=== PATIENT | male | born 1945 | race Caucasian/White ===

== ENCOUNTER 2020-07-12 09:41 | Emergency (ER) | payer OTHER, MEDICARE, SELFPAY ==
--- NOTE | ~2020-07-12 | XR_ITS ---
EXAMINATION: XR CHEST CLINICAL INFORMATION: Nausea, vomiting, diarrhea, cough and abdominal pain. COMPARISON: None TECHNIQUE: 2 views of the chest were obtained. FINDINGS: The lungs are hyperexpanded but clear of acute process. Heart size and pulmonary vascularity is normal. There is mild spondylosis dorsal spine. No lytic process. XR/XR chest 2V IMPRESSION: Hypoexpanded lungs but clear.
--- NOTE | ~2020-07-12 | CT_ITS ---
EXAMINATION: CT ABDOMEN AND PELVIS WITH CONTRAST CLINICAL INFORMATION: Abdominal pain COMPARISON: None TECHNIQUE: Multidetector volumetric images were obtained from the superior aspect of the liver through the pubic symphysis following administration 85 mL of Omnipaque 350 intravenous contrast. Sagittal and coronal reformatted images were obtained on the technologist's workstation. Oral contrast: No This CT examination was performed using dose optimization techniques as appropriate, variously including the following: *Automated exposure control *Adjustment of mA and/or kV according to patient size (this includes techniques or standardized protocols for targeted exams where dose is matched to indication/reason for exam; i.e. extremities or head) *Use of iterative reconstruction technique DLP: 6:15 mGy-cm FINDINGS: LUNG BASES: The visualized lung bases are unremarkable. LIVER, GALLBLADDER, AND BILIARY TREE: The liver is normal in size, shape, and attenuation. No focal hepatic lesion or biliary ductal dilatation is present. Small gallstones noted incidentally. No acute inflammatory changes. PANCREAS: Unremarkable. SPLEEN: Unremarkable. ADRENAL GLANDS: Unremarkable. KIDNEYS AND URETERS: The kidneys are normal in size, shape, and attenuation. No hydronephrosis, hydroureter, or calculi seen. No perinephric stranding. Incidental right renal cortical cyst. BLADDER: Unremarkable. GASTROINTESTINAL TRACT: Relatively pronounced diverticulosis throughout the colon especially sigmoid colon. No acute inflammatory changes. Within the left lower quadrant please see dietz images, there is a fat lobule adjacent to the sigmoid colon which appears inflamed consistent with epiploic appendicitis. ABDOMINAL WALL: No significant hernia is appreciated. LYMPH NODES: Normal. VASCULAR: Unremarkable. PELVIC VISCERA: Marked prostatic enlargement. OSSEOUS STRUCTURES: Bulky spurring within the right supra-acetabular location noted. CT/CT abdomen pelvis w con IMPRESSION: Findings consistent with epiploic appendicitis left lower quadrant. Incidental gallstones. Diverticulosis without acute inflammatory changes.
[2020-07-12 09:48] VITALS: BP 159/75; PULSE 74; RESP 18; TEMP 37.2; O2SAT 95; BMI 27.1
--- NOTE | 2020-07-12 09:57 | ECG_ITS ---
Test Reason : WEAKNESS Blood Pressure : / mmHG Vent. Rate : 067 BPM Atrial Rate : 067 BPM P-R Int : 154 ms QRS Dur : 090 ms QT Int : 432 ms P-R-T Axes : 015 015 015 degrees QTc Int : 456 ms Normal sinus rhythm Normal ECG No previous ECGs available Referred By: Marilyn Zavala Electronically Signed By:Erik Palma
[2020-07-12] MEDS: 0.9 % Sodium Chloride 1,000 ML 999 ML IVCONT (10:06)
--- NOTE | 2020-07-12 10:28 | ED_ITS ---
HPI - Nausea/Vomiting/Diarrhea General Chief complaint: Nausea/Vomiting/Diarrhea Stated complaint: nausea, diarrhea, chills Time Seen by Provider: 07/12/20 09:51 Source: patient and EMS Mode of arrival: EMS Limitations: no limitations History of Present Illness HPI Narrative: 74-year-old male with a past medical history of diabetes, hypertension, hyperlipidemia and BPH presenting to the ED with complaints of nausea/vomiting/diarrhea with abdominal pain that started this morning. Reports he had a chills after he vomited. Reports he has also had a cough over the past few days with white-colored sputum. Patient reports he ate fish that his cook last night she ate the same meal and is not having any similar symptoms. He reports his abdominal pain has resolved. He was given Zofran and given fluids by EMS and already is starting to feel better. Denies recent travel or sick contacts. Denies any fevers, dizziness, lightheadedness, changes in vision, hematemesis, sore throat, chest pain, shortness of breath, dyspnea on exertion, orthopnea, palpitations, back pain, black or bloody stools, yellow mu cousy stools, dysuria, hematuria or any other symptom complaints or concerns at this time. Denies recent antibiotic usage. Denies recent hospitalization. Patient denies being on any blood thinners. Patient denies history of abdominal surgery, alcohol abuse or trauma. MD elicited complaint: nausea, vomiting, diarrhea and abdominal pain Onset (ago): minute(s) (Prior to arrival) Description of vomiting: bilious Description of diarrhea: watery and loose Associated nausea: Yes Associated abdominal pain: Yes Location of pain: diffuse Pain consistency: now resolved Severity: mild Quality: cramping Exacerbating factors: vomiting Relieving factors: none Associated symptoms: cough, fever/chills (Chills no fever) and nausea/vomiting Treatment prior to arrival: fluids and other (Patient given Zofran) Related Data Previous Rx's Medication Instructions Recorded acetaminophen [Tylenol Extra 1,000 mg PO QID PRN #14 tab 07/12/20 Strength] amoxicillin-pot clavulanate 1 tab PO BID 10 Days #20 tab 07/12/20 [Augmentin] ondansetron HCl [Zofran] 4 mg PO Q8H PRN #14 tab 07/12/20 oxycodone 5 mg PO BID PRN #10 tab 07/12/20 Allergies Allergy/AdvReac Type Severity Reaction Status Date / Time No Known Allergies Allergy Unverified 12/13/19 16:08 Review of Systems Review of Systems: Constitutional : + Chills, No Fever, No Night Sweats, No Fatigue, No Malaise Cardiovascular : No Chest Pain, No SOB Respiratory : + Cough, + Sputum, No Wheezing, No Dyspnea Gastrointestinal : + Nausea, + Vomiting, + Diarrhea, + abdominal Pain, No Hematochezia, No Melena Genitourinary : No irregular bleeding, No Dysuria, No Urinary Frequency, No Hematuria,No Urinary Incontinence, No Urgency, No Flank Pain Musculoskeletal : No joint pain, No Myalgias, No Joint Swelling Skin : No Skin Lesions, No rash Neuro : No Weakness, No Numbness, No Paresthesias, No Loss of Consciousness, No Dizziness, No Headache Heme/Lymph: No Lymphadenopathy Endocrine : No Temperature Intolerance Yes all other systems are reviewed and are negative Gastrointestinal: Gastrointestinal: Reports nausea PMFSH Past Medical History Attestation statement: The following information was validated with the patient. Social History Social History Advance Directives: No Advance Directives Information Provided: Yes Physical Exam Vital Signs: Vital Signs: Last Vital Signs Temp 99.0 F 07/12/20 11:15 Pulse 66 07/12/20 15:21 Resp 14 07/12/20 15:21 BP 170/80 H 07/12/20 15:21 Pulse Ox 96 07/12/20 15:21 Body Mass Index 27.1 vital signs have been reviewed as normal and appeared to be correct. Blood pressure hypertensive at 159/75. Heart rate normal. Respiration rate normal. Temperature normal. Oxygen saturation normal. Appearance: Alert. Oriented X3. No acute distress. Head: Normal external exam. Normocephalic. Eyes: PERRLA. EOMI. Conjunctiva and sclera normal. Eyelids normal. ENT: Pharynx normal. Uvula midline. Moist mucous membranes. No trismus noted. No drooling noted. No muffled voice noted. Neck: Normal inspection. Neck supple. FROM. No adenopathy. No meningeal signs. CVS: Normal heart rate and rhythm. Heart sound normal. No murmurs noted. Pulses normal throughout. Respiratory: No respiratory distress. Painless inspiration. Breath sounds normal. No wheezes/rales/rhonchi noted. Chest nontender. No accessory muscle usage noted or decreased air movement noted. Abdomen: Soft and nontender. Nondistended. No guarding. No rigidity. Bowel sounds normal in all 4 quadrants. No distention noted. No organomegaly noted. No visible injury noted. No rebound tenderness. Negative Rovsing sign. Negative obturator's sign. Negative psoas sign. Negative Dent sign. Back: No CVA tenderness. Full range of motion noted. Skin: Skin warm and dry. Normal skin color. Normal skin turgor. No rashes/lesions/lacerations noted. Extremities: No lower extremity edema noted. No calf tenderness noted. Extremities exhibit normal range of motion. Extremities nontender. Neuro: Oriented X 3. No motor deficit. No sensory deficit. Reflexes normal. Course Course Course Narrative: 1:30pm - BUN 18 - UA with 500 glucose otherwise no evidence of UTI. - COVID swab negative. - patient was requesting a Lyme test due to he is always in the [facility] - chest x-ray revealed hypoexpanded lungs but clear - EKG revealed normal sinus rhythm intricate of 67 with a normal [place] interval normal QRS duration normal QT/QTC interval. No acute ischemic changes are noted. Reevaluation(s) Reevaluation #1: - CT scan of abdomen and pelvis revealed Findings consistent with epiploic appendicitis left lower quadrant. - therefore I discussed this case with Dr. Woods and he reviewed the films and he reported that it is not appendicitis it is actually epiploic apendagitis and that his appendix was completely within normal limits and he recommended me to discharge the patient with antibiotics Augmentin and symptomatic treatment instructions to return if any new or worsening symptoms to follow up with primary care provider. Therefore I updated the patient and he understands will DC home with antibiotics and symptomatic treatment structures return if any new or worsening symptoms. Patient and understand agree with this plan. Time: 16:29 MDM - Nausea/Vomiting/Diarrhea MDM Narrative Medical decision making narrative: 10:40am - 74-year-old male presenting to the ED with complaints of nausea/vomiting/diarrhea with diffuse abdominal pain that started this morning. Also reports productive cough with white-colored sputum over the past few days. Denies recent travel or sick contacts. Not on any blood thinners. - patient arrived by EMS he received 4 mg of Zofran and 200 mL of fluids and reports he is feeling better. He reports his abdominal pain is completely resolved at this time. - on exam patient is alert and oriented x3. Not in any acute distress. Vital signs reviewed and patient mildly hypertensive at 159/75 otherwise all other vitals are within normal limits. No focal neuro deficits are noted. Lungs clear to auscultation. CV RRR. Abdomen is soft and nontender. No CVA tenderness bilaterally noted. No calf tenderness or lower extremity edema noted. - Plan: Labs, chest x-ray, EKG, CT scan of abdomen and pelvis with IV contrast. Provide a L of IV fluids and re-evaluate. Medical Records Attestation: I reviewed the patient's medical records. Lab Data Attestation: I reviewed the patient's lab results. Result diagrams: 07/12/20 10:40 07/12/20 10:40 Labs: Lab Results 07/12/20 07/12/20 07/12/20 Range/Units 10:40 10:40 10:40 WBC 9.8 (4.8-10.8) X10*3/uL RBC 4.80 (4.60-5.80) X10*6/uL Hgb 13.8 L (14.0-18.0) g/dl Hct 42.1 (42-52) % MCV 87.7 (80-98) fL MCH 28.8 (27.0-33.0) pg MCHC 32.8 (31.0-36.0) g/dl RDW 13.5 (11.0-16.0) % Plt Count 208 (160-400) X10*3/uL MPV 10.6 (9.4-12.4) fL Immature Gran % (Auto) 0.4 (0.0-0.4) % Neut % (Auto) 82.5 H (45-73) % Lymph % (Auto) 6.8 L (20-40) % [place] % (Auto) 9.0 (2-11) % Eos % (Auto) 1.0 (0-4) % Baso % (Auto) 0.3 (0-2) % Lymph # (Auto) 0.7 L (1.2-4.9) X10*3/uL [place] # (Auto) 0.9 (0.1-1.2) X10*3/uL Eos # (Auto) 0.1 (0.0-0.4) X10*3/uL Baso # (Auto) 0.0 (0.0-0.2) X10*3/uL Abs Immat Gran (auto) 0.04 H (0.00-0.03) X10*3/uL Absolute Neuts (auto) 8.1 (2.0-8.3) X10*3/uL Absolute Nucleated RBC 0.000 (0.0-0.012) X10*3/uL Nucleated RBC % (auto) 0.0 (0.0-0.2) /100WBC Smear Tech's Comments VERIFIED Hold Purple Top PT 10.7 L (10.8-13.0) SEC INR 0.9 (0.9-1.1) APTT 22.0 L (24.1-38.0) SEC Sodium (135-145) mmol/L Potassium (3.3-5.1) mmol/L Chloride (96-108) mmol/L Carbon Dioxide (22-29) mmol/L Anion Gap (12-20) BUN (9-16) mg/dL Creatinine (0.5-1.4) mg/dL Estim Creat Clear Calc Estimated GFR Random Glucose (60-115) mg/dL Calcium (8.4-10.2) mg/dL Magnesium 1.8 (1.6-2.6) mg/dL Ferritin (20-250) ng/mL Total Bilirubin (0.0-1.0) mg/dL AST (5-37) U/L ALT (0-40) U/L Alkaline Phosphatase (39-117) U/L Lactate Dehydrogenase (118-273) U/L B-Natriuretic Peptide (<100) pg/mL Total Protein (6.5-8.0) g/dL Albumin (3.5-5.0) g/dL Procalcitonin ng/mL Urine Color Urine Appearance Urine pH (5.0-8.0) Ur Specific [place] (1.005-1.025) Urine Protein (NEG-TRACE) MG/DL Urine Glucose (UA) (NEG) MG/DL Urine Ketones (NEG) MG/DL Urine Blood (NEG) Urine Nitrite (NEG) Ur Leukocyte Esterase (NEG) COVID-19 (REUBEN) (Negative) COVID-19 Clin Com 07/12/20 07/12/20 07/12/20 Range/Units 10:40 10:40 10:40 WBC (4.8-10.8) X10*3/uL RBC (4.60-5.80) X10*6/uL Hgb (14.0-18.0) g/dl Hct (42-52) % MCV (80-98) fL MCH (27.0-33.0) pg MCHC (31.0-36.0) g/dl RDW (11.0-16.0) % Plt Count (160-400) X10*3/uL MPV (9.4-12.4) fL Immature Gran % (Auto) (0.0-0.4) % Neut % (Auto) (45-73) % Lymph % (Auto) (20-40) % [place] % (Auto) (2-11) % Eos % (Auto) (0-4) % Baso % (Auto) (0-2) % Lymph # (Auto) (1.2-4.9) X10*3/uL [place] # (Auto) (0.1-1.2) X10*3/uL Eos # (Auto) (0.0-0.4) X10*3/uL Baso # (Auto) (0.0-0.2) X10*3/uL Abs Immat Gran (auto) (0.00-0.03) X10*3/uL Absolute Neuts (auto) (2.0-8.3) X10*3/uL Absolute Nucleated RBC (0.0-0.012) X10*3/uL Nucleated RBC % (auto) (0.0-0.2) /100WBC Smear Tech's Comments Hold Purple Top PT (10.8-13.0) SEC INR (0.9-1.1) APTT (24.1-38.0) SEC Sodium 141 (135-145) mmol/L Potassium 3.8 (3.3-5.1) mmol/L Chloride 108 (96-108) mmol/L Carbon Dioxide 22 (22-29) mmol/L Anion Gap 15 (12-20) BUN 18 H (9-16) mg/dL Creatinine 0.80 (0.5-1.4) mg/dL Estim Creat Clear Calc 84.9 Estimated GFR > 60 Random Glucose 224 H (60-115) mg/dL Calcium 9.1 (8.4-10.2) mg/dL Magnesium (1.6-2.6) mg/dL Ferritin 116 (20-250) ng/mL Total Bilirubin 0.9 (0.0-1.0) mg/dL AST 18 (5-37) U/L ALT 29 (0-40) U/L Alkaline Phosphatase 71 (39-117) U/L Lactate Dehydrogenase 161 (118-273) U/L B-Natriuretic Peptide 89 (<100) pg/mL Total Protein 6.2 L (6.5-8.0) g/dL Albumin 3.9 (3.5-5.0) g/dL Procalcitonin 0.15 ng/mL Urine Color Urine Appearance Urine pH (5.0-8.0) Ur Specific [place] (1.005-1.025) Urine Protein (NEG-TRACE) MG/DL Urine Glucose (UA) (NEG) MG/DL Urine Ketones (NEG) MG/DL Urine Blood (NEG) Urine Nitrite (NEG) Ur Leukocyte Esterase (NEG) COVID-19 (REUBEN) (Negative) COVID-19 Clin Com 07/12/20 07/12/20 07/12/20 Range/Units 10:40 10:43 12:03 WBC (4.8-10.8) X10*3/uL RBC (4.60-5.80) X10*6/uL Hgb (14.0-18.0) g/dl Hct (42-52) % MCV (80-98) fL MCH (27.0-33.0) pg MCHC (31.0-36.0) g/dl RDW (11.0-16.0) % Plt Count (160-400) X10*3/uL MPV (9.4-12.4) fL Immature Gran % (Auto) (0.0-0.4) % Neut % (Auto) (45-73) % Lymph % (Auto) (20-40) % [place] % (Auto) (2-11) % Eos % (Auto) (0-4) % Baso % (Auto) (0-2) % Lymph # (Auto) (1.2-4.9) X10*3/uL [place] # (Auto) (0.1-1.2) X10*3/uL Eos # (Auto) (0.0-0.4) X10*3/uL Baso # (Auto) (0.0-0.2) X10*3/uL Abs Immat Gran (auto) (0.00-0.03) X10*3/uL Absolute Neuts (auto) (2.0-8.3) X10*3/uL Absolute Nucleated RBC (0.0-0.012) X10*3/uL Nucleated RBC % (auto) (0.0-0.2) /100WBC Smear Tech's Comments Hold Purple Top SEE NOTE PT (10.8-13.0) SEC INR (0.9-1.1) APTT (24.1-38.0) SEC Sodium (135-145) mmol/L Potassium (3.3-5.1) mmol/L Chloride (96-108) mmol/L Carbon Dioxide (22-29) mmol/L Anion Gap (12-20) BUN (9-16) mg/dL Creatinine (0.5-1.4) mg/dL Estim Creat Clear Calc Estimated GFR Random Glucose (60-115) mg/dL Calcium (8.4-10.2) mg/dL Magnesium (1.6-2.6) mg/dL Ferritin (20-250) ng/mL Total Bilirubin (0.0-1.0) mg/dL AST (5-37) U/L ALT (0-40) U/L Alkaline Phosphatase (39-117) U/L Lactate Dehydrogenase (118-273) U/L B-Natriuretic Peptide (<100) pg/mL Total Protein (6.5-8.0) g/dL Albumin (3.5-5.0) g/dL Procalcitonin ng/mL Urine Color YELLOW Urine Appearance CLEAR Urine pH 5.0 (5.0-8.0) Ur Specific [place] >= 1.030 H (1.005-1.025) Urine Protein NEG (NEG-TRACE) MG/DL Urine Glucose (UA) 500 H (NEG) MG/DL Urine Ketones NEG (NEG) MG/DL Urine Blood NEG (NEG) Urine Nitrite NEG (NEG) Ur Leukocyte Esterase NEG (NEG) COVID-19 (REUBEN) Negative (Negative) COVID-19 Clin Com See Note Imaging Data Chest x-ray: Attestation: I personally reviewed and interpreted this imaging study as follows: Radiologist's impression: FINDINGS: The lungs are hyperexpanded but clear of acute process. Heart size and pulmonary vascularity is normal. There is mild spondylosis dorsal spine. No lytic process. XR/XR chest 2V IMPRESSION: Hypoexpanded lungs but clear. CT scan of abdomen and pelvis with IV contrast: Attestation: I personally reviewed and interpreted this imaging study as follows: Radiologist's impression: FINDINGS: LUNG BASES: The visualized lung bases are unremarkable. LIVER, GALLBLADDER, AND BILIARY TREE: The liver is normal in size, shape, and attenuation. No focal hepatic lesion or biliary ductal dilatation is present. Small gallstones noted incidentally. No acute inflammatory changes. PANCREAS: Unremarkable. SPLEEN: Unremarkable. ADRENAL GLANDS: Unremarkable. KIDNEYS AND URETERS: The kidneys are normal in size, shape, and attenuation. No hydronephrosis, hydroureter, or calculi seen. No perinephric stranding. Incidental right renal cortical cyst. BLADDER: Unremarkable. GASTROINTESTINAL TRACT: Relatively pronounced diverticulosis throughout the colon especially sigmoid colon. No acute inflammatory changes. Within the left lower quadrant please see dietz images, there is a fat lobule adjacent to the sigmoid colon which appears inflamed consistent with epiploic appendicitis. ABDOMINAL WALL: No significant hernia is appreciated. LYMPH NODES: Normal. VASCULAR: Unremarkable. PELVIC VISCERA: Marked prostatic enlargement. OSSEOUS STRUCTURES: Bulky spurring within the right supra-acetabular location noted. CT/CT abdomen pelvis w con IMPRESSION: Findings consistent with epiploic appendicitis left lower quadrant. Incidental gallstones. Diverticulosis without acute inflammatory changes. ECG Data Attestation: I personally reviewed and interpreted this ECG as follows: ECG interpretation date: 07/12/20 ECG interpretation time: 11:06 Interpretation: Normal sinus rhythm with a ventricular rate of 67 with a normal [place] interval normal QRS duration normal QT/QTC interval. No acute ischemic changes are noted. No prior EKG in our system to Compare to at this time. Critical Care Time Critical Care Time Critical Care Time: Yes Total Critical Care Time: 60 Attestation: I personally attest to this time spent taking care of the patient Discharge Plan Discharge Clinical Impression: Gallstones, Epiploic appendagitis, Diverticulosis Patient Disposition: Home, Self-Care Instructions: Acute Nausea and Vomiting (ED), Abdominal Pain (ED) Additional Instructions: You have a pending LYME TEST if it is positive you will be contacted so we can treat you. Return if any new or worsening symptoms. Follow up with her primary care provider. Prescriptions: New ondansetron HCl [Zofran] 4 mg tablet 4 mg PO Q8H PRN (Reason: nausea and vomiting) Qty: 14 RF: 0 acetaminophen [Tylenol Extra Strength] 500 mg tablet 1,000 mg PO QID PRN (Reason: fever or pain) Qty: 14 RF: 0 amoxicillin-pot clavulanate [Augmentin] 875-125 mg tablet 1 tab PO BID 10 Days Qty: 20 RF: 0 oxycodone 5 mg tablet 5 mg PO BID PRN (Reason: pain) Qty: 10 RF: 0 Referrals: Brian Chatterjee [Primary Care Provider] - 2 days Print Language: Turkish
[2020-07-12 10:52] LABS: Basophils Percent Auto 0.3 % (0-2); Eosinophils Absolute Auto 0.1 X10*3/uL (0.0-0.4); Hematocrit 42.1 % (42-52); Hemoglobin 13.8 g/dl (14.0-18.0); Imm Gran Abs Auto 0.04 X10*3/uL (0.00-0.03); Imm Gran Pct Auto 0.4 % (0.0-0.4); Lymphocytes Absolute Auto 0.7 X10*3/uL (1.2-4.9); Lymphocytes Percent Auto 6.8 % (20-40); MANUAL DIFF FLAG SCAN; Mean Corpuscular HGB Conc 32.8 g/dl (31.0-36.0); Mean Corpuscular Hemoglobin 28.8 pg (27.0-33.0); Mean Corpuscular Volume 87.7 fL (80-98); Mean Platelet Volume 10.6 fL (9.4-12.4); Monocytes Absolute Auto 0.9 X10*3/uL (0.1-1.2); Neutrophils Absolute Auto 8.1 X10*3/uL (2.0-8.3); Neutrophils Percent Auto 82.5 % (45-73); Platelet Count 208 X10*3/uL (160-400); Red Cell Distribution Width 13.5 % (11.0-16.0); SCAN SMEAR FLAG 1; White Blood Count 9.8 X10*3/uL (4.8-10.8)
[2020-07-12 10:59] LABS: INTERNATIONAL NORM RATIO 0.9 (0.9-1.1); Prothrombin Time 10.7 SEC (10.8-13.0)
[2020-07-12 11:07] LABS: COVID-19 Test Negative (Negative); IDNOW Serial# 9DD0AD1C
[2020-07-12 11:10] LABS: Magnesium 1.8 mg/dL (1.6-2.6)
[2020-07-12 11:15] VITALS: BP 150/78; PULSE 68; RESP 17; TEMP 37.2
[2020-07-12 11:17] LABS: SLIDE REVIEW VERIFIED
[2020-07-12 11:18] LABS: Alanine Aminotransferase 29 U/L (0-40); Albumin Level 3.9 g/dL (3.5-5.0); Alkaline Phosphatase 71 U/L (39-117); Anion Gap 15 (12-20); Aspartate Amino Transferase 18 U/L (5-37); Bilirubin Total 0.9 mg/dL (0.0-1.0); Blood Urea Nitrogen 18 mg/dL (9-16); Calcium 9.1 mg/dL (8.4-10.2); Carbon Dioxide 22 mmol/L (22-29); Chloride 108 mmol/L (96-108); Creatinine Clr Calc Pharmacy 84.9; Estimated Glomerular Filt Rate > 60; Glucose Random 224 mg/dL (60-115); Lactate Dehydrogenase 161 U/L (118-273); Potassium 3.8 mmol/L (3.3-5.1); Sodium 141 mmol/L (135-145); Total Protein 6.2 g/dL (6.5-8.0)
[2020-07-12 11:19] LABS: B Type Natriuretic Peptide 89 pg/mL (<100)
[2020-07-12 11:34] LABS: Procalcitonin 0.15 ng/mL
[2020-07-12 11:40] LABS: Ferritin 116 ng/mL (20-250)
[2020-07-12 12:17] LABS: Glucose Urine UA 500 MG/DL (NEG); Leukocyte Esterase Urine NEG (NEG); Nitrite Urine NEG (NEG); Specific Gravity - Urine >= 1.030 (1.005-1.025); Urine Blood NEG (NEG); Urine Ketones NEG (NEG); Urine Protein NEG (NEG-TRACE)
[2020-07-12 12:22] LABS: Appearance Urine CLEAR; Color Urine YELLOW
[2020-07-12] MEDS: iohexoL 350 MG/ML 100 ML INFUS..BTL IV (14:53)
[2020-07-12 15:21] VITALS: BP 170/80; PULSE 66; RESP 14; O2SAT 96
[2020-07-13 05:46] LABS: Lyme Abs Screen <0.90 index
== END 2020-07-12 16:55 | disposition home or self-care (01) ==
PROVIDERS: Physician Assistant Medical; Emergency Provider Emergency Medicine; PCP Internal Medicine
DX: K80.80 Other cholelithiasis without obstruction (principal); K63.89 Other specified diseases of intestine; K57.30 Diverticulosis of large intestine without perforation or abscess without bleeding; Z20.822 Contact with and (suspected) exposure to COVID-19; R11.2 Nausea with vomiting, unspecified; E11.9 Type 2 diabetes mellitus without complications; I10 Essential (primary) hypertension; E78.5 Hyperlipidemia, unspecified
CPT/HCPCS: 36415; 71046; 74177; 80053; 81003; 82728; 83615; 83735; 83880; 84145; 85025; 85610; 85730; 86617; 86618; 87635; 93005; 96360; 99284; 99291; Q9967

== ENCOUNTER 2020-07-18 05:52 | Emergency (ER) | payer OTHER, MEDICARE, SELFPAY ==
--- NOTE | ~2020-07-18 | US_ITS ---
EXAMINATION: US ABDOMEN LIMITED CLINICAL INFORMATION: Right upper quadrant/epigastric pain. COMPARISON: None TECHNIQUE: Real-time imaging of the right upper quadrant abdominal viscera. FINDINGS: PANCREAS: Pancreas is largely obscured by bowel gas. LIVER: There is increased echogenicity of the hepatic parenchyma with decreased sonographic through-transmission and obscuration of the portal vessels, consistent with steatosis. Focal fatty sparing is seen near the gallbladder fossa. The liver is normal in size. The liver contour is normal. No focal hepatic lesion. There is no intrahepatic biliary duct dilatation seen. GALLBLADDER: Echogenic bile and mobile gallstones are present within the gallbladder lumen. Along the superior gallbladder wall, there is a cluster of echogenic, nonshadowing, nonmobile confluent material with a mural attachment, measuring 1 cm in thickness. No significant internal blood flow is present within the material on color Doppler. Additional adherent, rounded polypoid foci are present in the gallbladder wall Gallbladder wall measures 3 mm in thickness, normal. No pericholecystic fluid. No sonographic Dent's sign was documented. COMMON BILE DUCT: Normal in caliber measuring 0.6 cm in diameter. RIGHT KIDNEY: No hydronephrosis or renal calculi. A 2 x 1.6 x 1.7 cm cyst is present in the interpolar region with a thin internal septation. No appreciable soft tissue component or internal blood flow on color Doppler. The kidney measures 11.5 cm in maximum dimension. Cortical thickness is normal. FREE FLUID: None. US/US abdomen limited IMPRESSION: 1. Cholelithiasis without evidence of acute cholecystitis. Of note, there is echogenic nonmobile material adherent to the gallbladder wall measuring 1 cm in thickness. This may correspond to adherent sludge, though a polypoid focus cannot be excluded. Additional adherent foci measuring up to 9 mm in diameter may correspond to separate polyps. Follow-up ultrasound in one year to verify stability. Alternatively, consider MRI abdomen with and without contrast for more definitive assessment. 2. Hepatic steatosis 3. A 2 cm minimally complex right renal cyst, likely Bosniak 2. No follow-up is necessary.
[2020-07-18 06:07] VITALS: BP 162/97; PULSE 80; O2SAT 95
[2020-07-18 06:12] VITALS: BP 183/92; PULSE 75; RESP 18; TEMP 36.9; O2SAT 95; BMI 27.2
--- NOTE | 2020-07-18 06:41 | ED.ABDPAIN ---
HPI - Abdominal Pain General Chief Complaint: Abdominal Pain Stated Complaint: n/v with abdominal pain Time Seen by Provider: 07/18/20 06:30 Source: patient, EMS and old records reviewed Mode of arrival: EMS Limitations: no limitations Related Data Previous Rx's Medication Instructions Recorded acetaminophen [Tylenol Extra 1,000 mg PO QID PRN #14 tab 07/12/20 Strength] amoxicillin-pot clavulanate 1 tab PO BID 10 Days #20 tab 07/12/20 [Augmentin] ondansetron HCl [Zofran] 4 mg PO Q8H PRN #14 tab 07/12/20 oxycodone 5 mg PO BID PRN #10 tab 07/12/20 Allergies Allergy/AdvReac Type Severity Reaction Status Date / Time No Known Allergies Allergy Unverified 12/13/19 16:08 Physical Exam Vital Signs: Vital Signs: Last Vital Signs Temp 98.4 F 07/18/20 06:12 Pulse 75 07/18/20 06:12 Resp 18 07/18/20 06:12 BP 183/92 H 07/18/20 06:12 Pulse Ox 95 07/18/20 06:12 Body Mass Index 27.2 Discharge Plan Discharge Prescriptions: No Action ondansetron HCl [Zofran] 4 mg tablet 4 mg PO Q8H PRN (Reason: nausea and vomiting) Qty: 14 RF: 0 acetaminophen [Tylenol Extra Strength] 500 mg tablet 1,000 mg PO QID PRN (Reason: fever or pain) Qty: 14 RF: 0 amoxicillin-pot clavulanate [Augmentin] 875-125 mg tablet 1 tab PO BID 10 Days Qty: 20 RF: 0 oxycodone 5 mg tablet 5 mg PO BID PRN (Reason: pain) Qty: 10 RF: 0 PMFSH Social History Social History Alcohol intake: never Smoking Status: Light tobacco smoker Use of substances other than those prescribed or required for medical reasons: No Advance Directives: No
--- NOTE | 2020-07-18 06:54 | ED.ABDPAIN ---
HPI - Abdominal Pain General Chief Complaint: Abdominal Pain Stated Complaint: n/v with abdominal pain Time Seen by Provider: 07/18/20 06:30 Source: patient Mode of arrival: EMS History of Present Illness HPI narrative: 74-year-old male with history of hypertension diabetes who presents via EMS with acute onset of recurrent epigastric diaphragmatic distribution of abdominal pain with multiple episodes of nausea and vomiting but denies any fevers or chills. Patient states that he was evaluated on Tuesday for similar symptoms but at that time noted that he had diarrhea. At that time he states he was diagnosed with ?appendicitis?. And he was discharged home with oral antibiotics. Related Data Previous Rx's Medication Instructions Recorded acetaminophen [Tylenol Extra 1,000 mg PO QID PRN #14 tab 07/12/20 Strength] amoxicillin-pot clavulanate 1 tab PO BID 10 Days #20 tab 07/12/20 [Augmentin] ondansetron HCl [Zofran] 4 mg PO Q8H PRN #14 tab 07/12/20 oxycodone 5 mg PO BID PRN #10 tab 07/12/20 Allergies Allergy/AdvReac Type Severity Reaction Status Date / Time No Known Allergies Allergy Unverified 12/13/19 16:08 Review of Systems Review of Systems Pertinent positives and negatives as stated in HPI 10 point review systems otherwise negative. Physical Exam Vital Signs: Vital Signs: Last Vital Signs Temp 98.4 F 07/18/20 06:12 Pulse 75 07/18/20 06:12 Resp 18 07/18/20 06:12 BP 183/92 H 07/18/20 06:12 Pulse Ox 95 07/18/20 06:12 Body Mass Index 27.2 VITAL SIGNS: Reviewed. GENERAL: Well developed, well nourished, in no acute distress. HEAD: Normocephalic/atraumatic EYES: PERRLA, EOMI NOSE: Nares patent bilateral OROPHARYNX: no oral lesions noted, posterior pharynx clear NECK: Supple, no adenopathy LUNGS: Normal breath sounds. No adventitious sounds or accessory muscle use. SpO2<95> CARDIOVASCULAR: Regular rate and rhythm without noted murmurs ABDOMEN: Soft, epigastric tenderness without rebound no noted tenderness on palpation at either lower quadrant, non-distended with bowel sounds. NEUROLOGIC: Alert and oriented x 4. Course Course Course Narrative: 74-year-old male with history and clinical presentation suggestive possible cholecystitis and less likely acute exacerbation appendagitis. All review initial lab results suggestive of possible cholecystitis and ultrasound is pending. Signed out to Dr Broussard. MDM - Abdominal Pain Lab Data Result diagrams: 07/18/20 06:52 07/18/20 06:52 Labs: Lab Results 07/18/20 07/18/20 Range/Units 06:52 06:52 WBC 7.7 (4.8-10.8) X10*3/uL RBC 4.62 (4.60-5.80) X10*6/uL Hgb 13.3 L (14.0-18.0) g/dl Hct 40.2 L (42-52) % MCV 87.0 (80-98) fL MCH 28.8 (27.0-33.0) pg MCHC 33.1 (31.0-36.0) g/dl RDW 13.5 (11.0-16.0) % Plt Count 224 (160-400) X10*3/uL MPV 9.9 (9.4-12.4) fL Immature Gran % (Auto) 0.4 (0.0-0.4) % Neut % (Auto) 86.7 H (45-73) % Lymph % (Auto) 8.2 L (20-40) % [place] % (Auto) 3.9 (2-11) % Eos % (Auto) 0.4 (0-4) % Baso % (Auto) 0.4 (0-2) % Lymph # (Auto) 0.6 L (1.2-4.9) X10*3/uL [place] # (Auto) 0.3 (0.1-1.2) X10*3/uL Eos # (Auto) 0.0 (0.0-0.4) X10*3/uL Baso # (Auto) 0.0 (0.0-0.2) X10*3/uL Abs Immat Gran (auto) 0.03 (0.00-0.03) X10*3/uL Absolute Neuts (auto) 6.7 (2.0-8.3) X10*3/uL Absolute Nucleated RBC 0.000 (0.0-0.012) X10*3/uL Nucleated RBC % (auto) 0.0 (0.0-0.2) /100WBC Smear Tech's Comments VERIFIED Sodium 140 (135-145) mmol/L Potassium 3.9 (3.3-5.1) mmol/L Chloride 107 (96-108) mmol/L Carbon Dioxide 22 (22-29) mmol/L Anion Gap 15 (12-20) BUN 14 (9-16) mg/dL Creatinine 0.76 (0.5-1.4) mg/dL Estim Creat Clear Calc 89.3 Estimated GFR > 60 Random Glucose 253 H (60-115) mg/dL Calcium 9.0 (8.4-10.2) mg/dL Total Bilirubin 1.1 H (0.0-1.0) mg/dL AST 26 D (5-37) U/L ALT 42 H (0-40) U/L Alkaline Phosphatase 70 (39-117) U/L Total Protein 6.4 L (6.5-8.0) g/dL Albumin 4.0 (3.5-5.0) g/dL Lipase 56 (8-78) U/L Discharge Plan Discharge Prescriptions: No Action ondansetron HCl [Zofran] 4 mg tablet 4 mg PO Q8H PRN (Reason: nausea and vomiting) Qty: 14 RF: 0 acetaminophen [Tylenol Extra Strength] 500 mg tablet 1,000 mg PO QID PRN (Reason: fever or pain) Qty: 14 RF: 0 amoxicillin-pot clavulanate [Augmentin] 875-125 mg tablet 1 tab PO BID 10 Days Qty: 20 RF: 0 oxycodone 5 mg tablet 5 mg PO BID PRN (Reason: pain) Qty: 10 RF: 0 PMFSH Past Medical History Source: nursing notes reviewed Social History Social History Alcohol intake: never Smoking Status: Light tobacco smoker Use of substances other than those prescribed or required for medical reasons: No Advance Directives: No
[2020-07-18 07:00] LABS: Basophils Percent Auto 0.4 % (0-2); Eosinophils Percent Auto 0.4 % (0-4); Hematocrit 40.2 % (42-52); Hemoglobin 13.3 g/dl (14.0-18.0); Imm Gran Abs Auto 0.03 X10*3/uL (0.00-0.03); Imm Gran Pct Auto 0.4 % (0.0-0.4); Lymphocytes Absolute Auto 0.6 X10*3/uL (1.2-4.9); Lymphocytes Percent Auto 8.2 % (20-40); MANUAL DIFF FLAG SCAN; Mean Corpuscular HGB Conc 33.1 g/dl (31.0-36.0); Mean Corpuscular Hemoglobin 28.8 pg (27.0-33.0); Mean Platelet Volume 9.9 fL (9.4-12.4); Monocytes Absolute Auto 0.3 X10*3/uL (0.1-1.2); Monocytes Percent Auto 3.9 % (2-11); Neutrophils Absolute Auto 6.7 X10*3/uL (2.0-8.3); Neutrophils Percent Auto 86.7 % (45-73); Platelet Count 224 X10*3/uL (160-400); Red Blood Count 4.62 X10*6/uL (4.60-5.80); Red Cell Distribution Width 13.5 % (11.0-16.0); SCAN SMEAR FLAG 1; White Blood Count 7.7 X10*3/uL (4.8-10.8)
[2020-07-18 07:21] LABS: SLIDE REVIEW VERIFIED
[2020-07-18 07:23] LABS: Alanine Aminotransferase 42 U/L (0-40); Alkaline Phosphatase 70 U/L (39-117); Anion Gap 15 (12-20); Aspartate Amino Transferase 26 U/L (5-37); Bilirubin Total 1.1 mg/dL (0.0-1.0); Blood Urea Nitrogen 14 mg/dL (9-16); Carbon Dioxide 22 mmol/L (22-29); Chloride 107 mmol/L (96-108); Creatinine Clr Calc Pharmacy 89.3; Estimated Glomerular Filt Rate > 60; Glucose Random 253 mg/dL (60-115); Lipase 56 U/L (8-78); Potassium 3.9 mmol/L (3.3-5.1); Sodium 140 mmol/L (135-145); Total Protein 6.4 g/dL (6.5-8.0)
--- NOTE | 2020-07-18 07:37 | ECG_ITS ---
Test Reason : ABDOMINAL PAIN Blood Pressure : / mmHG Vent. Rate : 074 BPM Atrial Rate : 074 BPM P-R Int : 164 ms QRS Dur : 092 ms QT Int : 410 ms P-R-T Axes : 041 013 035 degrees QTc Int : 455 ms Normal sinus rhythm Normal ECG When compared with ECG of 12-JUL-2020 11:06, No significant change was found Referred By: Danni Casarez Electronically Signed By:Erik Palma
[2020-07-18 08:38] LABS: Glucose Urine UA 500 MG/DL (NEG); Leukocyte Esterase Urine NEG (NEG); Nitrite Urine NEG (NEG); PH 5.5 (5.0-8.0); Urine Blood TRACE (NEG); Urine Ketones 5 MG/DL (NEG); Urine Protein NEG (NEG-TRACE)
[2020-07-18 08:39] LABS: Appearance Urine CLEAR; Color Urine YELLOW
[2020-07-18 08:52] LABS: RBC Urine 0-2 /HPF (0); WBC Urine 0 /HPF (0-4)
[2020-07-18 08:54] LABS: COVID-19 Test Negative (Negative)
== END 2020-07-18 10:02 | disposition home or self-care (01) ==
PROVIDERS: Emergency Medicine; Emergency Provider Student in an Organized Health Care Education/Training Program
DX: R10.13 Epigastric pain (principal); F17.200 Nicotine dependence, unspecified, uncomplicated; Z20.822 Contact with and (suspected) exposure to COVID-19; Z79.899 Other long term (current) drug therapy; Z71.6 Tobacco abuse counseling
CPT/HCPCS: 36415; 76705; 80053; 81001; 83690; 85025; 87086; 87635; 93005; 96374; 99284

== ENCOUNTER → 2020-08-08 10:55 | Outpatient (BNVA) | payer OTHER, MEDICARE, SELFPAY | PROVIDERS: PCP Internal Medicine; Visit Provider Surgery | DX: K80.20 Calculus of gallbladder without cholecystitis without obstruction (principal) | CPT/HCPCS: 99202 ==

== ENCOUNTER 2020-08-20 06:11 | Day surgery (SDC) | payer OTHER, SELFPAY ==
--- NOTE | 2020-08-18 13:47 | HO.ANESPROP2 ---
Documented by User: Jyotsna Lin 08/18/20 13:49 HPI - Anesthesia Eval Consult details Narrative: 74yo M for Cholecystectomy Laparoscopic, Poss Open PMFSH Active Problems Active Problems: All Active Problems (Updated 08/13/20 @ 10:44 by Lyssa Rowe) Diabetes (Acute) Hyperlipidemia (Acute) Hypertension (Acute) BPH (benign prostatic hyperplasia) (Acute) Symptomatic cholelithiasis (Acute) Past Medical History Medical History BPH (benign prostatic hyperplasia) COVID-19 vaccine series completed Diabetes GERD (gastroesophageal reflux disease) HTN (hypertension) Hyperlipidemia On beta kisha at home Family History Family History Mother Colon cancer Maternal Grandfather Colon cancer Surgical History Surgical History H/O right inguinal hernia repair H/O: vasectomy Hx of colonoscopy Social History Social History Are you a primary hospice spiritual care coordinator to a significant other at home: No Do you presently have visiting nurse or other home services: No Alcohol intake: never Smoking Status: Never smoker Use of substances other than those prescribed or required for medical reasons: No Have you been hit, kicked, punched, or otherwise hurt by someone within the past year? If so, by whom?: No Are you DNR?: No Advance Directives: No Advance Directives Information Provided: Yes Advance Directives on File: No Recently lost weight without trying: No Eating poorly because of decreased appetite: No Nutrition Risks: No Nutritional Risk Meds Allergies Allergy/AdvReac Type Severity Reaction Status Date / Time Seasonal Allergies Allergy Mild Sneezing Verified 08/13/20 09:58 Home Medications Medication Instructions Recorded Confirmed Last Taken Type amlodipine 10 mg PO DAILY 08/13/20 08/13/20 08/20/20 History calcium carbonate [Calcium 600] 600 mg PO DAILY 08/13/20 08/13/20 Unknown History glipizide 10 mg PO BID 08/13/20 08/13/20 Unknown History lactase [Lactaid] 6,000 unit PO DAILY 08/13/20 08/13/20 Unknown History loratadine [Claritin] 10 mg PO DAILY 08/13/20 08/13/20 Unknown History losartan 100 mg PO DAILY 08/13/20 08/13/20 Unknown History metformin 2,000 mg PO QPM 08/13/20 08/13/20 Unknown History metoprolol succinate 50 mg PO DAILY 08/13/20 08/13/20 08/20/20 History hetepeql-ntk-WM-lycopen-lutein 1 tab PO DAILY 08/13/20 08/13/20 Unknown History [Men 50 Plus Multivitamin] omeprazole 20 mg PO DAILY 08/13/20 08/13/20 Unknown History rosuvastatin 20 mg PO DAILY 08/13/20 08/13/20 Unknown History tamsulosin 0.4 mg PO DAILY 08/13/20 08/13/20 Unknown History vitamin B complex [B Complex] 1 cap PO DAILY 08/13/20 08/13/20 Unknown History Exam Exam Date and Time: August 18, 2020 1347 Height,Weight and Vital Signs: Weight 84.992 kg Pertinent Lab Results Pertinent Lab Results: Laboratory Tests 07/18/20 07/18/20 06:52 06:52 WBC 7.7 Hgb 13.3 L Hct 40.2 L Plt Count 224 Sodium 140 Potassium 3.9 Chloride 107 Carbon Dioxide 22 BUN 14 Creatinine 0.76 Laboratory Tests 07/18/20 06:52 Calcium 9.0 Total Bilirubin 1.1 H AST 26 D ALT 42 H Alkaline Phosphatase 70 Total Protein 6.4 L Albumin 4.0 Lipase 56 Narrative Narrative: EKG 06/2020 Vent. Rate : 074 BPM Atrial Rate : 074 BPM P-R Int : 164 ms QRS Dur : 092 ms QT Int : 410 ms P-R-T Axes : 041 013 035 degrees QTc Int : 455 ms Normal sinus rhythm Normal ECG When compared with ECG of 12-JUL-2020 11:06, No significant change was found Assessment and Plan Assessment Anesthesia Assessment: Chart Reviewed Documented by User: Ayan Mistry 08/20/20 07:00 [facility] Past Medical History Medical History BPH (benign prostatic hyperplasia) COVID-19 vaccine series completed Diabetes GERD (gastroesophageal reflux disease) HTN (hypertension) Hyperlipidemia On beta kisha at home Family History Family History Mother Colon cancer Maternal Grandfather Colon cancer Surgical History Surgical History H/O right inguinal hernia repair H/O: vasectomy Hx of colonoscopy Social History Social History Are you a primary hospice spiritual care coordinator to a significant other at home: No Do you presently have visiting nurse or other home services: No Alcohol intake: never Smoking Status: Never smoker Use of substances other than those prescribed or required for medical reasons: No Have you been hit, kicked, punched, or otherwise hurt by someone within the past year? If so, by whom?: No Are you DNR?: No Advance Directives: No Advance Directives Information Provided: Yes Advance Directives on File: No Recently lost weight without trying: No Eating poorly because of decreased appetite: No Nutrition Risks: No Nutritional Risk Meds Allergies Allergy/AdvReac Type Severity Reaction Status Date / Time Seasonal Allergies Allergy Mild Sneezing Verified 08/13/20 09:58 Home Medications Medication Instructions Recorded Confirmed Last Taken Type amlodipine 10 mg PO DAILY 08/13/20 08/13/20 08/20/20 History calcium carbonate [Calcium 600] 600 mg PO DAILY 08/13/20 08/13/20 Unknown History glipizide 10 mg PO BID 08/13/20 08/13/20 Unknown History lactase [Lactaid] 6,000 unit PO DAILY 08/13/20 08/13/20 Unknown History loratadine [Claritin] 10 mg PO DAILY 08/13/20 08/13/20 Unknown History losartan 100 mg PO DAILY 08/13/20 08/13/20 Unknown History metformin 2,000 mg PO QPM 08/13/20 08/13/20 Unknown History metoprolol succinate 50 mg PO DAILY 08/13/20 08/13/20 08/20/20 History ohqolkyy-osx-HH-lycopen-lutein 1 tab PO DAILY 08/13/20 08/13/20 Unknown History [Men 50 Plus Multivitamin] omeprazole 20 mg PO DAILY 08/13/20 08/13/20 Unknown History rosuvastatin 20 mg PO DAILY 08/13/20 08/13/20 Unknown History tamsulosin 0.4 mg PO DAILY 08/13/20 08/13/20 Unknown History vitamin B complex [B Complex] 1 cap PO DAILY 08/13/20 08/13/20 Unknown History Exam Airway Mallampati Class: II TM Dist: >3cm Neck ROM: Full
[2020-08-20] VITALS (9 sets, daily range): BP systolic 145–175; BP diastolic 69–88; PULSE 44–56; RESP 16–20; TEMP 36.1–36.8; O2SAT 94–100
[2020-08-20 06:35] LABS: Glucose, Whole Blood 130 mg/dL (60-115)
[2020-08-20] MEDS: Lactated Ringers 1,000 ML 100 ML IVCONT (06:42)
[2020-08-20] MEDS: cefoTEtan disodium 2 GM in 0.9 % Sodium Chloride 50 ML IV (06:45)
--- NOTE | 2020-08-20 07:22 | MHC.SHP ---
Pre-Procedural Eval Section A The patient is an INPATIENT: No Changes since office visit: Yes Patient answered all questions; No Cold of Flu in the past 2 weeks, No New Medical Problems and No Changes in Medication The History & Physical has been completed within 30 days and I have reviewed it.: Yes Section B Chief Complaint: Symptomatic cholelithiasis Allergies: Allergies Allergy/AdvReac Type Severity Reaction Status Date / Time Seasonal Allergies Allergy Mild Sneezing Verified 08/13/20 09:58 Plan Diagnosis/Plan: Unchanged I have reviewed the history and physical and performed a pertinent physical examination on my patient. No changes have occurred unless specified.
--- NOTE | 2020-08-20 08:57 | W.PM.OPN ---
Operative Note Operative Note Date of Service: 08/20/20 Narrative: Preoperative diagnosis: Symptomatic cholelithiasis Postoperative diagnosis: Same Procedure: Laparoscopic cholecystectomy Surgeon: Orlando Woods MD Breaker Unit Assembler: BREANNE Arnold Anesthesia: General endotracheal Indications for procedure: 74-year-old male patient presenting with several episodes of pain in the right upper quadrant associated with fatty food intake. The patient underwent evaluation with an ultrasound of the abdomen which revealed gallstones within the gallbladder and gallbladder wall thickening. Also some adherent polyps are choleliths were identified on the wall of the gallbladder. He presents today for laparoscopic or possible open cholecystectomy Operative findings: Gallbladder was found to be moderately thickened with chronic adhesions consistent with prior episodes of acute cholecystitis. A gallstones noted at the cystic duct and was able to be milked into the gallbladder. Specimen: Gallbladder Estimated blood loss: 5 mL Complications: None Procedure details: Patient was brought to the OR and placed in a supine position. After administering general anesthesia the patient's abdomen was prepped with ChloraPrep and draped in a sterile fashion. Local anesthesia consisting of 0.25% Sensorcaine with epinephrine was infiltrated in a periumbilical region. A 5 mm incision was made above the umbilicus in a transverse fashion. The Veress needle was then inserted while elevating abdominal cavity with towel clips. After positive drop test the abdomen was insufflated to a pressure of 15 mm of mercury. The Veress needle was then removed and a 5 mm trocar inserted. The camera was inserted in the abdomen explored. A 12 mm trocar was then placed in the epigastrium and two 5 mm trocars placed in the right upper quadrant. The patient was placed in reverse Trendelenburg positioning and rotated to the left. The gallbladder was grasped with the fundus and retracted cephalad. Adhesions were taken down off the inferior surface of the gallbladder with electrocautery and a Dolphin dissector. The infundibulum was then grasped and retracted away from the liver bed. The Dolphin dissected was then used to dissect the peritoneum off the infundibulum to reveal the junction with the cystic duct. Cystic artery was noted slightly medial and posterior to the cystic duct. After obtaining a critical view the cystic duct was doubly clipped and divided. The cystic artery was then doubly clipped and divided. The gallbladder was then dissected off the liver bed using electrocautery with an L hook. Hemostasis was assured all times using the electrocautery. When the gallbladder is completely dissected off the liver bed was placed in an Endo-Catch bag and brought out through the epigastric incision. The gallbladder was sent to pathology for further examination. The abdomen was then re-examined. The liver bed was irrigated and suctioned dry. No bleeding or bile leak could be identified. CO2 was then evacuated and all trocars removed. Fascia was closed at the epigastric incision using a [id number] 0 Polysorb suture. Skin was closed in all incisions using a subcuticular 4 0 Polysorb suture. Sterile dressings consisting of Steri-Strips, 2 x 2 gauze, and Tegaderm were then applied. The patient tolerated the procedure well. Sponge instrument and needle counts reported as correct. The patient was transferred to PACU in stable condition.
[2020-08-20] MEDS: Acetaminophen 325 MG TABLET 650 MG PO (10:25)
== END 2020-08-20 11:36 | disposition home or self-care (01) ==
PROVIDERS: Visit Provider Surgery
PROC: 0FT44ZZ Resection of Gallbladder, Percutaneous Endoscopic Approach (ICD-10-PCS; CPT 47562; principal; 2020-08-20 07:30)
DX: K80.10 Calculus of gallbladder with chronic cholecystitis without obstruction (principal); K82.8 Other specified diseases of gallbladder; E11.9 Type 2 diabetes mellitus without complications; I10 Essential (primary) hypertension; Z79.899 Other long term (current) drug therapy; Z79.84 Long term (current) use of oral hypoglycemic drugs
CPT/HCPCS: 47562; 82947; 88304; J0690; J1100; J1885; J2250; J2405; J3010

== ENCOUNTER → 2020-08-28 10:03 | Outpatient (BNVA) | payer OTHER, SELFPAY | PROVIDERS: Visit Provider Surgery | DX: Z48.815 Encounter for surgical aftercare following surgery on the digestive system (principal); Z87.19 Personal history of other diseases of the digestive system | CPT/HCPCS: 99212 ==

== ENCOUNTER 2022-10-19 14:19 | Outpatient (REF) | payer OTHER, SELFPAY ==
--- NOTE | ~2022-10-19 | MR_ITS ---
EXAMINATION: MR SHOULDER WITHOUT CONTRAST, RIGHT CLINICAL INFORMATION: Right shoulder pain. Decreased range of motion. Fall in June 2022. COMPARISON: None available. TECHNIQUE: MRI of the shoulder without contrast was performed on a high-field scanner. FINDINGS: ROTATOR CUFF: Heterogeneously increased T2 signal throughout the supraspinatus tendon, consistent with moderate tendinosis. Insertional bursal surface partial tearing measuring 1.7 x 1.2 cm (AP x ML). Mild infraspinatus tendinosis. Moderate subscapularis tendinosis with articular surface partial tearing measuring up to 2.8 cm in ML dimension. No measurable full-thickness rotator cuff tendon tear. No muscle atrophy or fatty infiltration. BICEPS: Mild proximal biceps tendinosis without a measurable tear. CORACOACROMIAL ARCH: The undersurface of the acromion is flat with no subacromial spur. Moderate acromioclavicular osteoarthritis. LABRUM/CAPSULE: Diffuse heterogeneous signal throughout the superior and posterosuperior labrum, consistent with complex tearing. Nondisplaced undersurface tearing extends through the posterior and posteroinferior labrum. Intact joint capsule. GLENOHUMERAL JOINT/MARROW: Diffuse articular cartilage thinning with areas of full-thickness loss posterosuperiorly. Small marginal osteophytes. Small joint effusion with mild synovitis. MR/MR shoulder RT wo con IMPRESSION: 1. Moderate supraspinatus tendinosis with insertional bursal surface partial tearing measuring 1.7 x 1.2 cm. Mild infraspinatus tendinosis. Moderate subscapularis tendinosis with articular surface partial tearing measuring 2.8 cm in ML dimension. No full-thickness rotator cuff tendon tear. 2. Mild proximal biceps tendinosis. 3. Moderate acromioclavicular osteoarthritis. 4. Diffuse degenerative tearing of the superior, posterosuperior, posterior, and posteroinferior labrum. 5. [id number] glenohumeral osteoarthritis. Small joint effusion with mild synovitis.
== END 2022-10-19 14:20 | disposition home or self-care (01) ==
LOC: HO.MRI 14:19
PROVIDERS: PCP Internal Medicine; Visit Provider Physician Assistant Medical
DX: M25.511 Pain in right shoulder (principal)
CPT/HCPCS: 73221